=== PATIENT | male | born 1970 | race Caucasian/White ===

== ENCOUNTER 2018-01-05 20:04 | Emergency (ER) | payer BC, OTHER ==
--- NOTE | 2018-01-05 20:32 | Emergency Department Record ---
History of Present Illness - General Chief Complaint: Shortness of breath Stated Complaint: SHORT OF BREATH,HIGH BLOOD PRESSURE,HEARTBURN Time Seen by Provider: 01/05/18 20:31 Source: Patient Mode of Arrival: Ambulatory Limitations: No limitations - History of Present Illness Initial Comments: pt hasnt felt right over the last week which is getting progressively worse. he has discomfort in his chest, sob, nausea and acid reflux. his dr is scheduling a stresstest but symptoms became worse tonight. pt checked bp and found it to be high and came here MD Complaint: Chest pain, Shortness of breath Onset/Timin -: Days(s) Severity scale (1-10): 4 Consistency: Constant, Getting worse Context: Anxiety Associated Symptoms: Chest pain, Nausea/vomiting - Related Data Home Medications Medication Instructions Recorded Confirmed Last Taken Diazepam [Diazepam] 10 mg PO QHS 01/05/18 01/05/18 Unknown Allergies Allergy/AdvReac Type Severity Reaction Status Date / Time No Known Allergies Allergy Unverified 02/21/17 11:03 Travel Screening - Travel/Exposure Within Last 30 Days Have you traveled within the last 30 days?: No Review of Systems Reviewed: No additional complaints except as noted below Constitutional: Reports: As per HPI. Denies: Chills, Fever, Malaise, Night sweats, Weakness, Weight change Eyes: Reports: As per HPI. Denies: Eye discharge, Eye pain, Photophobia, Vision change ENT: Reports: As per HPI. Denies: Congestion, Dental pain, Ear pain, Epistaxis , Hearing loss, Throat pain Respiratory: Reports: As per HPI, Dyspnea. Denies: Cough, Hemoptysis, Stridor, Wheezes Cardiovascular: Reports: As per HPI, Chest pain, Dyspnea on exertion. Denies: Arrhythmia, Edema, Murmurs, Orthopnea, Palpitations, Paroxysmal nocturnal dyspnea, Rheumatic Fever, Syncope Endocrine: Reports: As per HPI. Denies: Fatigue, Heat or cold intolerance, Polydipsia, Polyuria Gastrointestinal: Reports: As per HPI. Denies: Abdominal pain, Constipation, Diarrhea, Hematemesis, Hematochezia, Melena, Nausea, Vomiting Genitourinary: Reports: As per HPI. Denies: Dysuria, Frequency, Hematuria, Incontinence, Retention, Testicular pain, Testicular mass, Urgency Musculoskeletal: Reports: As per HPI. Denies: Arthralgia, Back pain, Gout, Joint swelling, Myalgia, Neck pain Skin: Reports: As per HPI. Denies: Bruising, Change in color, Change in hair/ nails, Lesions, Pruritus, Rash Neurological: Reports: As per HPI. Denies: Abnormal gait, Confusion, Headache, Numbness, Paresthesias, Seizure, Tingling, Tremors, Vertigo, Weakness Psychiatric: Reports: As per HPI. Denies: Anxiety, Auditory hallucinations, Depression, Homicidal thoughts, Suicidal thoughts, Visual hallucinations Hematological/Lymphatic: Reports: As per HPI. Denies: Anemia, Blood Clots, Easy bleeding, Easy bruising, Swollen glands Past Medical History - SOCIAL HISTORY Smoking Status: Never smoker Alcohol Use: None Drug Use: Occasional Drug Use Detail:: Marijuana - RESPIRATORY Hx Respiratory Disorders: No - CARDIOVASCULAR Hx Cardio Disorders: Yes Hx Heart Attack: Yes - NEURO Hx Neuro Disorders: No - GI Hx GI Disorders: Yes Hx Reflux: Yes - Hx Genitourinary Disorders: No - ENDOCRINE Hx Endocrine Disorders: No - MUSCULOSKELETAL Hx Musculoskeletal Disorders: Yes Hx Back Injury: Yes - PSYCH Hx Psych Problems: Yes Hx Anxiety: Yes - HEMATOLOGY/ONCOLOGY Hx Hematology/Oncology Disorders: No Family Medical History Any Significant Family History?: No Family Hx Comment (NOT TO BE USED IN PLACE OF ITEMS BELOW): Adopted Physical Exam - General General Appearance: Alert, Oriented x3, Cooperative - Head Head exam: Normal inspection - Eye Eye exam: Normal appearance, PERRL, EOMI Pupils: Normal accommodation - ENT ENT exam: Normal exam, Mucous membranes moist, Normal external ear exam, Normal orophraynx Ear exam: Normal external inspection. negative: External canal tenderness Nasal Exam: Normal inspection. negative: Discharge, Sinus tenderness Mouth exam: Normal external inspection, Tongue normal Teeth exam: Normal inspection. negative: Dental caries Throat exam: Normal inspection. negative: Tonsillar erythema, Tonsillar exudate - Neck Neck exam: Normal inspection, Full ROM. negative: Tenderness - Respiratory Respiratory exam: Normal lung sounds bilaterally. negative: Respiratory distress - Cardiovascular Cardiovascular Exam: Regular rate, Normal rhythm, Normal heart sounds - GI/Abdominal GI/Abdominal exam: Soft, Normal bowel sounds. negative: Tenderness - Rectal Rectal exam: Deferred - exam: Deferred - Extremities Extremities exam: Normal inspection, Full ROM, Normal capillary refill. negative: Tenderness - Back Back exam: Reports: Normal inspection, Full ROM. Denies: Muscle spasm, Rash noted, Tenderness - Neurological Neurological exam: Alert, CN II-XII intact, Normal gait, Oriented X3 - Psychiatric Psychiatric exam: Normal affect, Normal mood - Skin Skin exam: Dry, Intact, Normal color, Warm Course Vital Signs 01/05/18 20:10 Temperature 97.4 F L Pulse Rate [ 78 Pulse Ox Probe] Respiratory 28 H Rate Blood Pressure 177/122 [Left Arm] Pulse Ox 98 - Reevaluation(s) Reevaluation #1: 01/05/18 22:50 chest pain got better with ntg Reevaluation #2: 01/06/18 00:39 pt remained pain free after ntg. pt advised to be admitted. pt signing out ama despite being told of risks including . pt states he has no one to take care of his 4 dogs.pt told he may rerurn at any time, Medical Decision Making - Lab Data Result diagrams: 01/05/18 20:33 01/05/18 20:33 Disposition Disposition: Other Clinical Impression: Chest pain Qualifiers: Chest pain type: unspecified Qualified Code(s): R07.9 - Chest pain, unspecified Hypertension Qualifiers: Hypertension type: unspecified Qualified Code(s): I10 - Essential (primary) hypertension Disposition: Against Medical Advice Condition: (2) Stable Instructions: Chest Pain (ED), Hypertension (ED) Additional Instructions: follow up tomorrow with family doctor. may return at any time. take aspirin 81mg a day. return sooner if worse Forms: Patient Portal Access Quality - Quality Measures Quality Measures: N/A - Blood Pressure Screening Does Patient Have Any of the Following: Active Dx of HTN Blood Pressure Classification: Hypertensive Reading Systolic Measurement: 175 Diastolic Measurement: 101 Screening for High Blood Pressure: Patient Exclusion, Hx of HTN [G9744]
[2018-01-05] MEDS ORDERED: ASPIRIN 81 MG CHEWABLE TABLET PO ONE (20:33)
[2018-01-05] MEDS: NITROGLYCERIN 0.4MG SL TABLET #25 BTL SL PRN ×3 (20:36→20:44)
[2018-01-05 20:41] LABS: GRAN % 54.4 % (47-80); HEMATOCRIT 48.8 % (42.0-52.0); HEMOGLOBIN 18.2 gm/dl (14.0-18.0); LYMPH % 30.5 % (16-45); MEAN CELL VOLUME 85.5 fl (81-97); MEAN CORPUSCULAR HGB CONC 37.3 g/dl (32-36); MONO % 9.1 % (0-9); PLATELET COUNT 225 K/uL (130-400); RED BLOOD COUNT 5.71 M/uL (4.40-5.70); RED CELL DISTRIBUTION WIDTH 11.9 % (11.5-14.5); WHITE BLOOD COUNT W/O DIFF 8.4 K/uL (4.2-12.2)
[2018-01-05 20:43] LABS: MEAN CORPUSCULAR HEMOGLOBIN 31.8 pg (27-33)
[2018-01-05 20:51] LABS: BLOOD UREA NITROGEN 12 mg/dL (6-20); CREATININE 0.9 mg/dL (0.7-1.2); EST GLOMERULAR FILTRATION RATE > 60 mL/min
[2018-01-05 20:52] LABS: TOTAL PROTEIN 7.6 g/dL (6.6-8.7)
[2018-01-05 20:54] LABS: GLUCOSE,RANDOM 98 mg/dL (74-109)
[2018-01-05 20:57] LABS: ALB/GLOB RATIO 1.5 (1.1-1.8); ALBUMIN 4.6 g/dL (4.0-5.0); ALKALINE PHOSPHATASE 93 U/L (40-129); ALT/SGPT 48 U/L (<41); AST/SGOT 25 U/L (10.0-50.0); CREATINE PHOSPHOKINASE 78 U/L (39-308)
[2018-01-05 20:59] LABS: CKMB 1.6 ng/mL (<6.73)
[2018-01-05] MEDS ORDERED: ACETAMINOPHEN 1,000 MG/100 ML BTL IVPB ONE (21:29)
[2018-01-05] MEDS ORDERED: CEFTRIAXONE SODIUM 1 GM in 0.9 % SODIUM CHLORIDE 100ML 100 ML IVPB ONE (22:29)
[2018-01-05] MEDS ORDERED: AZITHROMYCIN 500 MG TABLET PO ONE (22:29)
--- NOTE | 2018-01-06 00:49 | Emergency Department Record ---
History of Present Illness - General Chief Complaint: Shortness of breath Stated Complaint: SHORT OF BREATH,HIGH BLOOD PRESSURE,HEARTBURN Time Seen by Provider: 01/05/18 20:31 Source: Patient Mode of Arrival: Ambulatory Limitations: No limitations - History of Present Illness Onset/Timin -: Days(s) Severity scale (1-10): 4 Consistency: Constant, Getting worse Context: Anxiety Associated Symptoms: Chest pain, Nausea/vomiting - Related Data Home Medications Medication Instructions Recorded Confirmed Last Taken Diazepam [Diazepam] 10 mg PO QHS 01/05/18 01/05/18 Unknown Previous Rx's Medication Instructions Recorded Azithromycin [Zithromax] 250 mg PO DAILY #4 tab 01/06/18 Allergies Allergy/AdvReac Type Severity Reaction Status Date / Time No Known Allergies Allergy Unverified 02/21/17 11:03 Travel Screening - Travel/Exposure Within Last 30 Days Have you traveled within the last 30 days?: No Review of Systems Constitutional: Reports: As per HPI. Denies: Chills, Fever, Malaise, Night sweats, Weakness, Weight change Eyes: Reports: As per HPI. Denies: Eye discharge, Eye pain, Photophobia, Vision change ENT: Reports: As per HPI. Denies: Congestion, Dental pain, Ear pain, Epistaxis , Hearing loss, Throat pain Respiratory: Reports: As per HPI, Dyspnea. Denies: Cough, Hemoptysis, Stridor, Wheezes Cardiovascular: Reports: As per HPI, Chest pain, Dyspnea on exertion. Denies: Arrhythmia, Edema, Murmurs, Orthopnea, Palpitations, Paroxysmal nocturnal dyspnea, Rheumatic Fever, Syncope Endocrine: Reports: As per HPI. Denies: Fatigue, Heat or cold intolerance, Polydipsia, Polyuria Gastrointestinal: Reports: As per HPI. Denies: Abdominal pain, Constipation, Diarrhea, Hematemesis, Hematochezia, Melena, Nausea, Vomiting Genitourinary: Reports: As per HPI. Denies: Dysuria, Frequency, Hematuria, Incontinence, Retention, Testicular pain, Testicular mass, Urgency Musculoskeletal: Reports: As per HPI. Denies: Arthralgia, Back pain, Gout, Joint swelling, Myalgia, Neck pain Skin: Reports: As per HPI. Denies: Bruising, Change in color, Change in hair/ nails, Lesions, Pruritus, Rash Neurological: Reports: As per HPI. Denies: Abnormal gait, Confusion, Headache, Numbness, Paresthesias, Seizure, Tingling, Tremors, Vertigo, Weakness Psychiatric: Reports: As per HPI. Denies: Anxiety, Auditory hallucinations, Depression, Homicidal thoughts, Suicidal thoughts, Visual hallucinations Hematological/Lymphatic: Reports: As per HPI. Denies: Anemia, Blood Clots, Easy bleeding, Easy bruising, Swollen glands Past Medical History - SOCIAL HISTORY Smoking Status: Never smoker Alcohol Use: None Drug Use: Occasional Drug Use Detail:: Marijuana - RESPIRATORY Hx Respiratory Disorders: No - CARDIOVASCULAR Hx Cardio Disorders: Yes Hx Heart Attack: Yes - NEURO Hx Neuro Disorders: No - GI Hx GI Disorders: Yes Hx Reflux: Yes - Hx Genitourinary Disorders: No - ENDOCRINE Hx Endocrine Disorders: No - MUSCULOSKELETAL Hx Musculoskeletal Disorders: Yes Hx Back Injury: Yes - PSYCH Hx Psych Problems: Yes Hx Anxiety: Yes - HEMATOLOGY/ONCOLOGY Hx Hematology/Oncology Disorders: No Family Medical History Any Significant Family History?: No Family Hx Comment (NOT TO BE USED IN PLACE OF ITEMS BELOW): Adopted Physical Exam - General Limitations: No limitations Course Vital Signs 01/05/18 01/05/18 01/05/18 20:10 20:34 20:39 Temperature 97.4 F L Pulse Rate [ 78 74 86 Pulse Ox Probe] Respiratory 28 H 24 24 Rate Blood Pressure 177/122 161/105 147/100 [Left Arm] Pulse Ox 98 95 95 01/05/18 01/05/18 01/05/18 20:44 20:49 21:00 Temperature Pulse Rate [ 73 68 63 Pulse Ox Probe] Respiratory 20 20 16 Rate Blood Pressure 131/86 137/86 132/87 [Left Arm] Pulse Ox 95 95 95 01/05/18 01/05/18 01/06/18 22:00 23:00 00:00 Temperature Pulse Rate [ 69 81 70 Pulse Ox Probe] Respiratory 16 20 16 Rate Blood Pressure 148/105 146/105 175/101 [Left Arm] Pulse Ox 94 L 94 L 96 Medical Decision Making - Lab Data Result diagrams: 01/05/18 20:33 01/05/18 20:33 Lab Results 01/05/18 01/05/18 01/05/18 Range/Units 20:33 20:33 20:33 WBC 8.4 (4.2-12.2) K/uL RBC 5.71 H (4.40-5.70) M/uL Hgb 18.2 H (14.0-18.0) gm/dl Hct 48.8 (42.0-52.0) % MCV 85.5 (81-97) fl MCH 31.8 (27-33) pg MCHC 37.3 H (32-36) g/dl RDW 11.9 (11.5-14.5) % Plt Count 225 (130-400) K/uL MPV 11.0 H (7.4-10.4) fl Gran % 54.4 (47-80) % Lymphocytes % 30.5 (16-45) % Monocytes % 9.1 H (0-9) % Eosinophils % 5.0 (0-6) % Basophils % 1.0 (0-6) % D-Dimer 0.39 (0-0.59) mg/L FEU Sodium 138 (136-145) mmol/L Potassium 4.1 (3.4-4.5) mmol/L Chloride 101 (98-107) mmol/L Carbon Dioxide 25.0 (22-29) mmol/L Anion Gap 12.0 (7-16) BUN 12 (6-20) mg/dL Creatinine 0.9 (0.7-1.2) mg/dL Estimated GFR > 60 mL/min Random Glucose 98 (74-109) mg/dL Calcium 9.2 (8.6-10.0) mg/dL Total Bilirubin 0.40 (0.2-1.0) mg/dL AST 25 (10.0-50.0) U/L ALT 48 H (<41) U/L Alkaline Phosphatase 93 (40-129) U/L Creatine Kinase 78 (39-308) U/L CK-MB (CK-2) 1.6 (<6.73) ng/mL Troponin T < 0.010 (0-0.010) ng/mL NT-Pro-B Natriuret Pep (<125) pg/mL Total Protein 7.6 (6.6-8.7) g/dL Albumin 4.6 (4.0-5.0) g/dL Globulin 3.0 (1.4-4.8) gm/dL Albumin/Globulin Ratio 1.5 (1.1-1.8) 01/05/18 01/06/18 Range/Units 20:33 00:13 WBC (4.2-12.2) K/uL RBC (4.40-5.70) M/uL Hgb (14.0-18.0) gm/dl Hct (42.0-52.0) % MCV (81-97) fl MCH (27-33) pg MCHC (32-36) g/dl RDW (11.5-14.5) % Plt Count (130-400) K/uL MPV (7.4-10.4) fl Gran % (47-80) % Lymphocytes % (16-45) % Monocytes % (0-9) % Eosinophils % (0-6) % Basophils % (0-6) % D-Dimer (0-0.59) mg/L FEU Sodium (136-145) mmol/L Potassium (3.4-4.5) mmol/L Chloride (98-107) mmol/L Carbon Dioxide (22-29) mmol/L Anion Gap (7-16) BUN (6-20) mg/dL Creatinine (0.7-1.2) mg/dL Estimated GFR mL/min Random Glucose (74-109) mg/dL Calcium (8.6-10.0) mg/dL Total Bilirubin (0.2-1.0) mg/dL AST (10.0-50.0) U/L ALT (<41) U/L Alkaline Phosphatase (40-129) U/L Creatine Kinase (39-308) U/L CK-MB (CK-2) (<6.73) ng/mL Troponin T < 0.010 (0-0.010) ng/mL NT-Pro-B Natriuret Pep 42.95 (<125) pg/mL Total Protein (6.6-8.7) g/dL Albumin (4.0-5.0) g/dL Globulin (1.4-4.8) gm/dL Albumin/Globulin Ratio (1.1-1.8) Disposition Disposition: Other Clinical Impression: Chest pain Qualifiers: Chest pain type: unspecified Qualified Code(s): R07.9 - Chest pain, unspecified Hypertension Qualifiers: Hypertension type: unspecified Qualified Code(s): I10 - Essential (primary) hypertension Pneumonia Qualifiers: Pneumonia type: due to unspecified organism Laterality: unspecified laterality Lung location: unspecified part of lung Qualified Code(s): J18.9 - Pneumonia, unspecified organism Disposition: Against Medical Advice Condition: (2) Stable Instructions: Chest Pain (ED), Hypertension (ED) Additional Instructions: follow up tomorrow with family doctor. may return at any time. take aspirin 81mg a day. return sooner if worse Prescriptions: Azithromycin [Zithromax] 250 mg PO DAILY #4 tab Forms: Patient Portal Access Quality - Quality Measures Quality Measures: N/A - Blood Pressure Screening Does Patient Have Any of the Following: Active Dx of HTN Blood Pressure Classification: Hypertensive Reading Systolic Measurement: 175 Diastolic Measurement: 101 Screening for High Blood Pressure: Patient Exclusion, Hx of HTN [G9744]
--- NOTE | 2018-01-06 20:43 | RADIOLOGY REPORT ---
EXAM: CHEST 2 VIEWS HISTORY: CHEST PAIN. TECHNIQUE: PA and lateral views. COMPARISON: Two-view chest 08/29/17. FINDINGS: Heart size is normal. Lungs appear expanded with some very minor streaky atelectasis or infiltrate in the right middle lobe. No pleural effusion or pneumothorax evident. IMPRESSION: 1. SOME MINOR STREAKY ATELECTASIS OR INFILTRATE IN THE RIGHT MIDDLE LOBE. 2. HEART SIZE IS WITHIN NORMAL LIMITS. JOB NUMBER: [id number] MTDD
== END 2018-01-06 00:56 | disposition left against medical advice (07) ==
LOC: ER 20:04
DX: J18.9 Pneumonia, unspecified organism (principal); R07.9 Chest pain, unspecified; R11.2 Nausea with vomiting, unspecified; I10 Essential (primary) hypertension; R25.2 Cramp and spasm
CPT/HCPCS: 71046; 80053; 82550; 82553; 83880; 84484; 85025; 85379; 93005; 93010; 96374; 96375; 99284

== ENCOUNTER 2018-01-09 10:22 | Emergency (ER) | payer BC ==
--- NOTE | 2018-01-09 10:43 | Emergency Department Record ---
History of Present Illness - General Chief Complaint: Hypertension Stated Complaint: ELEVATED BP/SOB Time Seen by Provider: 01/09/18 10:38 Source: Patient Mode of Arrival: Ambulatory Limitations: No limitations - History of Present Illness Initial Comments: The patient is here due to intermittent SOB and chest heaviness for 2 weeks. The symptoms come and go and seem to be brought on with exertion and resolve with rest. He was in the ER 4 days ago for the same thing and his BP was quite elevated. The patient did take a double dose of his Lisinopril and Norvasc last night due to it persistently being elevated. Now today the symptoms seemed to worsen so he took his BP at [facility] and it was elevated so he came to the ER. Presently he denies any CP or SOB. He did take a full dose of ASA today. Complaint: Other Onset/Timin -: Hour(s) Description: Other History of Same: Yes History of Trauma: No Improves With: Nothing Worsens With: Nothing - Adkins Coma Scale Eye Response: (4) Open spontaneously Motor Response: (6) Obeys commands Verbal Response: (5) Oriented Adkins Total: 15 - Related Data Previous Rx's Medication Instructions Recorded Azithromycin [Zithromax] 250 mg PO DAILY #4 tab 01/06/18 Allergies Allergy/AdvReac Type Severity Reaction Status Date / Time No Known Allergies Allergy Unverified 02/21/17 11:03 Travel Screening - Travel/Exposure Within Last 30 Days Have you traveled within the last 30 days?: No - Travel/Exposure Within Last Year Have you traveled outside the [place] in the last year?: No - Additonal Travel Details Have you been exposed to anyone with a communicable illness?: No - Travel Symptoms Symptom Screening: None Review of Systems Constitutional: Denies: Chills, Fever Eyes: Denies: Eye discharge ENT: Denies: Congestion Respiratory: Reports: Dyspnea. Denies: Cough Cardiovascular: Reports: Chest pain. Denies: Arrhythmia Past Medical History - SOCIAL HISTORY Smoking Status: Never smoker Alcohol Use: None Drug Use: Occasional Drug Use Detail:: Marijuana - RESPIRATORY Hx Respiratory Disorders: No - CARDIOVASCULAR Hx Cardio Disorders: Yes Hx Heart Attack: Yes - NEURO Hx Neuro Disorders: No - GI Hx GI Disorders: Yes Hx Reflux: Yes - Hx Genitourinary Disorders: No - ENDOCRINE Hx Endocrine Disorders: No - MUSCULOSKELETAL Hx Musculoskeletal Disorders: Yes Hx Back Injury: Yes - PSYCH Hx Psych Problems: Yes Hx Anxiety: Yes - HEMATOLOGY/ONCOLOGY Hx Hematology/Oncology Disorders: No Family Medical History Any Significant Family History?: No Family Hx Comment (NOT TO BE USED IN PLACE OF ITEMS BELOW): Adopted Physical Exam - General General Appearance: Alert, Oriented x3, Cooperative, No acute distress - Head Head exam: Atraumatic, Normocephalic, Normal inspection - Eye Eye exam: Normal appearance, PERRL - ENT Throat exam: Normal inspection. negative: Tonsillar erythema, Tonsillar exudate - Neck Neck exam: Normal inspection, Full ROM. negative: Tenderness - Respiratory Respiratory exam: Normal lung sounds bilaterally. negative: Respiratory distress - Cardiovascular Cardiovascular Exam: Regular rate, Normal rhythm, Normal heart sounds - GI/Abdominal GI/Abdominal exam: Soft, Normal bowel sounds. negative: Tenderness - Extremities Extremities exam: Normal inspection, Full ROM, Normal capillary refill. negative: Tenderness - Neurological Neurological exam: Alert. negative: Motor sensory deficit Course Vital Signs 01/09/18 10:28 Temperature 97.7 F Pulse Rate 114 H Respiratory 18 Rate Blood Pressure 131/97 Pulse Ox 96 - Reevaluation(s) Reevaluation #1: The patient is doing very well at this time. He denies any CP or SOB. I did explain the need for admission to a larger hospital for a nuclear ST or heart catheterization and he would like to go to [facility]. I did discuss the case with Dr. Mendez at [facility] and he does accept the patient for admission. 01/09/18 11:54 Reevaluation #2: The patient is doing better. His BP is much improved and we are just waiting on a bed for transfer. 01/09/18 14:00 Medical Decision Making - Data Complexity MDM Data: EKG Ordered and/or Reviewed - Lab Data Result diagrams: 01/09/18 10:55 01/09/18 10:55 - EKG Data -: EKG Interpreted by Me EKG: No Acute Changes, Normal EKG, Unchanged From Previous Disposition Disposition: Transfer Clinical Impression: Chest pain Qualifiers: Chest pain type: unspecified Qualified Code(s): R07.9 - Chest pain, unspecified Disposition: Acute Care Hospital Transfer Transfer To: [facility] Reason For Transfer: Cardiology Accepting Physician: Time Discussed w/Accepting Physician: 11:56 Condition: (2) Stable Forms: Patient Portal Access Time of Disposition: 11:56 Quality - Quality Measures Quality Measures: N/A - Blood Pressure Screening View Details: Yes Does Patient Have Any of the Following: Active Dx of HTN Blood Pressure Classification: Hypertensive Reading Systolic Measurement: 131 Diastolic Measurement: 97 Screening for High Blood Pressure: Patient Exclusion, Hx of HTN [G9744]
[2018-01-09 11:12] LABS: BASO % 0.9 % (0-6); EOS % 4.9 % (0-6); GRAN % 57.7 % (47-80); HEMATOCRIT 48.5 % (42.0-52.0); HEMOGLOBIN 17.8 gm/dl (14.0-18.0); LYMPH % 29.2 % (16-45); MEAN CELL VOLUME 86.8 fl (81-97); MEAN CORPUSCULAR HEMOGLOBIN 31.8 pg (27-33); MEAN CORPUSCULAR HGB CONC 36.7 g/dl (32-36); MONO % 7.3 % (0-9); PLATELET COUNT 223 K/uL (130-400); RED BLOOD COUNT 5.59 M/uL (4.40-5.70); RED CELL DISTRIBUTION WIDTH 11.8 % (11.5-14.5); WHITE BLOOD COUNT W/O DIFF 6.6 K/uL (4.2-12.2)
[2018-01-09 11:23] LABS: PARTIAL THROMBOPLASTIN TIME 29.5 SECONDS (24.5-39.1); PROTHROMBIN TIME (PATIENT) 10.7 SECONDS (9.5-12.1)
[2018-01-09 11:33] LABS: BLOOD UREA NITROGEN 14 mg/dL (6-20); CREATINE PHOSPHOKINASE 94 U/L (39-308); EST GLOMERULAR FILTRATION RATE > 60 mL/min; GLUCOSE,RANDOM 177 mg/dL (74-109)
[2018-01-09 11:35] LABS: CKMB 1.6 ng/mL (<6.73)
== END 2018-01-09 17:10 | disposition short-term general hospital (02) ==
LOC: ER 10:22
DX: R07.89 Other chest pain (principal); I10 Essential (primary) hypertension; I25.2 Old myocardial infarction
CPT/HCPCS: 80048; 82550; 82553; 84484; 85025; 85610; 85730; 93005; 93010; 99285